=== PATIENT | female | born 1960 | race Caucasian/White ===

== ENCOUNTER → 2017-08-17 | Outpatient (CLI) | payer OTHER | END | disposition home or self-care (01) | LOC: CDC 10:47 | DX: Z01.810 Encounter for preprocedural cardiovascular examination (principal); R10.32 Left lower quadrant pain; R94.31 Abnormal electrocardiogram [ECG] [EKG] | CPT/HCPCS: 93000 ==

== ENCOUNTER 2017-08-28 05:42 | Day surgery (SDC) | payer OTHER ==
[~2017-08-28] VITALS: Ht 165.1 cm; Wt 86.2 kg
[~2017-08-28 05:42] MED LIST: COZAAR50 MG PO; VITAMIN B-121000 MC4 SL; XALATAN2.5 ML BOTH EYES
[2017-08-28] MEDS ORDERED: PROBIOTIC1 EAC1 PO (06:02)
[2017-08-28 06:10] VITALS: BP 162/82
[2017-08-28] MEDS ORDERED: ULTRAM50 MG PO (08:58)
[2017-08-28 10:00] VITALS: BP 144/72
[2017-08-28 11:03] VITALS: BP 137/86
[2017-08-28 11:30] VITALS: BP 140/70
== END 2017-08-28 11:48 | disposition home or self-care (01) ==
LOC: SDC 05:42
DX: N83.8 Other noninflammatory disorders of ovary, fallopian tube and broad ligament (principal); K66.0 Peritoneal adhesions (postprocedural) (postinfection); K57.30 Diverticulosis of large intestine without perforation or abscess without bleeding; R10.2 Pelvic and perineal pain; Z90.710 Acquired absence of both cervix and uterus; I10 Essential (primary) hypertension; K21.9 Gastro-esophageal reflux disease without esophagitis; E66.9 Obesity, unspecified; Z68.31 Body mass index [BMI] 31.0-31.9, adult; R73.03 Prediabetes; G47.33 Obstructive sleep apnea (adult) (pediatric)
CPT/HCPCS: 88305; J0330; J0690; J1100; J1170; J2405; J2710; J2765; J3010; J7643